=== PATIENT | female | born 1930 | race Caucasian/White ===

== ENCOUNTER 2016-04-21 16:22 | Inpatient (IN) | payer MEDICARE, OTHER ==
[2016-04-21] MEDS ORDERED: ZESTORETIC 20-1 EAC3 PO (17:00)
[2016-04-21] MEDS ORDERED: LOPRESSOR50 M1 PO (17:01)
[2016-04-21 21:03] LABS: BASO % 0.2 % (0-2); BASO ABSOLUTE COUNT 0.1 tho/cmm (0.0-0.2); HCT-HEMATOCRIT 39.4 % (34.0-49.0); HGB-HEMOGLOBIN 13.5 gm/dl (12.0-15.5); IMMATURE GRANULOCYTES ABSOLUTE 0.51 tho/cmm (0-0.03); IMMATURE GRANULOCYTES PERCENT 1.4 % (0-0.3); LYMPH % 2.4 % (20-45); LYMPH ABSOLUTE COUNT 0.9 tho/cmm (0.8-4.5); MCH (MEAN CORPUSCULAR HGB) 29.8 pg (28.0-32.0); MCHC MEAN CORPUSCULAR HGB CONC 34.3 % (32.0-36.0); MEAN PLATELET VOLUME 10.5 cmc (9.4-12.4); MONOCYTE ABSOLUTE COUNT 0.7 tho/cmm (0.0-1.2); NEUTROPHIL ABSOLUTE COUNT 33.5 tho/cmm (1.6-8.0); NEUTROPHIL-AUTOMATED 33.5 tho/cmm (1.6-8.0); PLATELET COUNT 389 tho/cmm (150-450); RED BLOOD COUNT 4.53 mil/cmm (4.00-5.20); RED CELL DISTRIBUTION WIDTH 13.5 % (12.4-16.4)
[2016-04-21 21:09] LABS: INR 1.5 INR (0.9-1.1); PROTHROMBIN TIME 17.7 SECONDS (9.0-13.6)
[2016-04-21 21:23] LABS: WHITE BLOOD COUNT 35.6 tho/cmm (4.0-10.0)
[2016-04-21 21:27] LABS: ALB/GLOB RATIO 0.3 (0.8-2.0); ALBUMIN 1.8 g/dl (3.5-5.0); ALKALINE PHOSPHATASE 110 U/L (33-138); ALT/SGPT 30 U/L (12-78); ANION GAP 19 mmol/L (0-20); AST/SGOT 23 U/L (10-40); BLOOD UREA NITROGEN 73 mg/dl (6-24); CALCIUM 8.2 mg/dl (8.5-10.5); CARBON DIOXIDE-VENOUS 21 mmol/L (22-32); CHLORIDE 106 mmol/l (96-110); CREATININE 2.52 mg/dl (0.50-1.10); GLUCOSE 171 mg/dL (70-110); POTASSIUM 4.5 mmol/L (3.7-5.1); SODIUM 141 mmol/L (135-145); eGFR VALUE FOR BLACK 22 mL/Min
[2016-04-21 21:37] LABS: URINE BILIRUBIN NEGATIVE (NEG); URINE BLOOD LARGE (NEG); URINE GLUCOSE (UA) NEGATIVE (NEG); URINE KETONE NEGATIVE (NEG); URINE LEUKOCYTE ESTERASE POSITIVE (NEG); URINE NITRITE NEGATIVE (NEG)
[2016-04-21 21:39] LABS: URINE APPEARANCE CLOUDY; URINE COLOR DARK YELLOW; URINE SPECIFIC GRAVITY 1.017 (1.003-1.030)
[2016-04-21 21:40] LABS: PROCALCITONIN 1.68 ng/ml (0.05-0.09)
[2016-04-21 21:51] LABS: URINE PROT SULFOSALICYLIC ACID 2+ (NEG)
[2016-04-21 21:52] LABS: URINE BACTERIA 3+; URINE EPITHELIAL CELLS 0-1 /[HPF] (0-10)
[2016-04-22 05:33] LABS: BASO % 0.1 % (0-2); HCT-HEMATOCRIT 34.5 % (34.0-49.0); HGB-HEMOGLOBIN 11.8 gm/dl (12.0-15.5); IMMATURE GRANULOCYTES ABSOLUTE 0.32 tho/cmm (0-0.03); IMMATURE GRANULOCYTES PERCENT 1.1 % (0-0.3); LYMPH % 4.2 % (20-45); LYMPH ABSOLUTE COUNT 1.2 tho/cmm (0.8-4.5); MCH (MEAN CORPUSCULAR HGB) 29.8 pg (28.0-32.0); MCHC MEAN CORPUSCULAR HGB CONC 34.2 % (32.0-36.0); MCV (MEAN CELL VOLUME) 87.1 fl (82.0-96.0); MEAN PLATELET VOLUME 10.3 cmc (9.4-12.4); MONO % 2.3 % (0-12); MONOCYTE ABSOLUTE COUNT 0.7 tho/cmm (0.0-1.2); NEUTROPHIL ABSOLUTE COUNT 26.9 tho/cmm (1.6-8.0); NEUTROPHIL-AUTOMATED 26.9 tho/cmm (1.6-8.0); NEUTROPHILS % 92.3 % (40-80); PLATELET COUNT 341 tho/cmm (150-450); RED BLOOD COUNT 3.96 mil/cmm (4.00-5.20); RED CELL DISTRIBUTION WIDTH 13.7 % (12.4-16.4); WHITE BLOOD COUNT 29.2 tho/cmm (4.0-10.0)
[2016-04-22 06:03] LABS: ANION GAP 16 mmol/L (0-20); BLOOD UREA NITROGEN 80 mg/dl (6-24); CALCIUM 8.1 mg/dl (8.5-10.5); CARBON DIOXIDE-VENOUS 21 mmol/L (22-32); CHLORIDE 107 mmol/l (96-110); CREATININE 2.86 mg/dl (0.50-1.10); GLUCOSE 147 mg/dL (70-110); POTASSIUM 4.4 mmol/L (3.7-5.1); SODIUM 140 mmol/L (135-145); eGFR VALUE FOR BLACK 19 mL/Min
[2016-04-22 06:16] LABS: MAGNESIUM 2.7 mg/dl (1.3-2.6); PHOSPHOROUS 3.4 mg/dl (2.5-4.9)
[2016-04-22 19:02] LABS: URINE CREATININE-RANDOM 48 mg/dl (30-125); URINE UREA NITROGEN-RANDOM 282 mg/dl (350-1000)
[2016-04-23 05:45] LABS: HCT-HEMATOCRIT 33.4 % (34.0-49.0); MCHC MEAN CORPUSCULAR HGB CONC 32.9 % (32.0-36.0); MCV (MEAN CELL VOLUME) 88.1 fl (82.0-96.0); MEAN PLATELET VOLUME 10.1 cmc (9.4-12.4); NEUTROPHIL-AUTOMATED 33.5 tho/cmm (1.6-8.0); PLATELET COUNT 306 tho/cmm (150-450); RED BLOOD COUNT 3.79 mil/cmm (4.00-5.20); RED CELL DISTRIBUTION WIDTH 14.2 % (12.4-16.4)
[2016-04-23 06:14] LABS: ANION GAP 16 mmol/L (0-20); BLOOD UREA NITROGEN 78 mg/dl (6-24); CALCIUM 7.8 mg/dl (8.5-10.5); CARBON DIOXIDE-VENOUS 19 mmol/L (22-32); CHLORIDE 113 mmol/l (96-110); CREATININE 2.72 mg/dl (0.50-1.10); GLUCOSE 85 mg/dL (70-110); MAGNESIUM 2.5 mg/dl (1.3-2.6); PHOSPHOROUS 4.6 mg/dl (2.5-4.9); POTASSIUM 3.9 mmol/L (3.7-5.1); SODIUM 144 mmol/L (135-145); eGFR VALUE FOR BLACK 20 mL/Min
[2016-04-23 06:25] LABS: C-REACTIVE PROTEIN 23.9 mg/dl (0-0.9)
[2016-04-23 08:26] LABS: BAND % 23 % (0-20); BAND ABSOLUTE COUNT 8.2 tho/cmm (0-2.0)
[2016-04-23 08:27] LABS: WBC MORPHOLOGY TOXIC GRANULATION
[2016-04-24 05:21] LABS: ANION GAP 13 mmol/L (0-20); BLOOD UREA NITROGEN 76 mg/dl (6-24); CALCIUM 7.7 mg/dl (8.5-10.5); CARBON DIOXIDE-VENOUS 21 mmol/L (22-32); CHLORIDE 112 mmol/l (96-110); CREATININE 2.62 mg/dl (0.50-1.10); GLUCOSE 84 mg/dL (70-110); MAGNESIUM 2.5 mg/dl (1.3-2.6); POTASSIUM 4.2 mmol/L (3.7-5.1); SODIUM 142 mmol/L (135-145); eGFR VALUE FOR BLACK 21 mL/Min
[2016-04-24 05:28] LABS: BASO % 0.1 % (0-2); BASO ABSOLUTE COUNT 0.1 tho/cmm (0.0-0.2); EOS % 0.7 % (0-7); EOSINOPHIL ABSOLUTE COUNT 0.3 tho/cmm (0.0-0.7); HCT-HEMATOCRIT 32.8 % (34.0-49.0); HGB-HEMOGLOBIN 10.8 gm/dl (12.0-15.5); IMMATURE GRANULOCYTES ABSOLUTE 0.36 tho/cmm (0-0.03); LYMPH ABSOLUTE COUNT 1.4 tho/cmm (0.8-4.5); MCHC MEAN CORPUSCULAR HGB CONC 32.9 % (32.0-36.0); MCV (MEAN CELL VOLUME) 88.2 fl (82.0-96.0); MEAN PLATELET VOLUME 10.5 cmc (9.4-12.4); MONO % 1.6 % (0-12); MONOCYTE ABSOLUTE COUNT 0.6 tho/cmm (0.0-1.2); NEUTROPHIL ABSOLUTE COUNT 33.1 tho/cmm (1.6-8.0); NEUTROPHIL-AUTOMATED 33.1 tho/cmm (1.6-8.0); NEUTROPHILS % 92.6 % (40-80); PLATELET COUNT 273 tho/cmm (150-450); RED BLOOD COUNT 3.72 mil/cmm (4.00-5.20); RED CELL DISTRIBUTION WIDTH 14.3 % (12.4-16.4)
[2016-04-24 05:32] LABS: WHITE BLOOD COUNT 35.8 tho/cmm (4.0-10.0)
[2016-04-24 05:33] LABS: PHOSPHOROUS 2.3 mg/dl (2.5-4.9)
[2016-04-24 08:30] LABS: URINE SODIUM-RANDOM 89 mmol/L (20-110)
[2016-04-24 21:26] LABS: ABG CO2 ARTERIAL 18 mmol/L (21-27); ARTERIAL BLD GAS O2 SATURATION 94 % (95-98); ARTERIAL BLOOD GAS PCO2 32 mmHg (32-45); ARTERIAL PO2 70 mmHg (70-100); BICARBONATE 17 mmol/L (21-28); BLOOD GAS BASE EXCESS -8 mM/L (-/+3); PH 7.34 Units (7.35-7.45)
[2016-04-24 21:33] LABS: BASO % 0.2 % (0-2); BASO ABSOLUTE COUNT 0.1 tho/cmm (0.0-0.2); HCT-HEMATOCRIT 35.4 % (34.0-49.0); HGB-HEMOGLOBIN 11.7 gm/dl (12.0-15.5); IMMATURE GRANULOCYTES ABSOLUTE 0.69 tho/cmm (0-0.03); IMMATURE GRANULOCYTES PERCENT 1.6 % (0-0.3); LYMPH ABSOLUTE COUNT 0.9 tho/cmm (0.8-4.5); MCH (MEAN CORPUSCULAR HGB) 29.2 pg (28.0-32.0); MCHC MEAN CORPUSCULAR HGB CONC 33.1 % (32.0-36.0); MCV (MEAN CELL VOLUME) 88.3 fl (82.0-96.0); MEAN PLATELET VOLUME 10.8 cmc (9.4-12.4); MONO % 1.2 % (0-12); MONOCYTE ABSOLUTE COUNT 0.5 tho/cmm (0.0-1.2); NEUTROPHIL ABSOLUTE COUNT 40.4 tho/cmm (1.6-8.0); NEUTROPHIL-AUTOMATED 40.4 tho/cmm (1.6-8.0); PLATELET COUNT 261 tho/cmm (150-450); RED BLOOD COUNT 4.01 mil/cmm (4.00-5.20); RED CELL DISTRIBUTION WIDTH 14.4 % (12.4-16.4)
[2016-04-24 21:34] LABS: WHITE BLOOD COUNT 42.6 tho/cmm (4.0-10.0)
[2016-04-24 21:36] LABS: INR 1.3 INR (0.9-1.1); PROTHROMBIN TIME 15.8 SECONDS (9.0-13.6)
[2016-04-24 21:46] LABS: ALB/GLOB RATIO 0.2 (0.8-2.0); ALBUMIN 1.2 g/dl (3.5-5.0); ALKALINE PHOSPHATASE 77 U/L (33-138); ALT/SGPT 11 U/L (12-78); ANION GAP 15 mmol/L (0-20); AST/SGOT 18 U/L (10-40); BILIRUBIN,TOTAL 0.7 mg/dl (0-1.5); BLOOD UREA NITROGEN 77 mg/dl (6-24); CALCIUM 7.5 mg/dl (8.5-10.5); CARBON DIOXIDE-VENOUS 21 mmol/L (22-32); CHLORIDE 113 mmol/l (96-110); CREATININE 2.66 mg/dl (0.50-1.10); POTASSIUM 4.4 mmol/L (3.7-5.1); SODIUM 145 mmol/L (135-145); eGFR VALUE FOR BLACK 21 mL/Min
[2016-04-24 21:53] LABS: GLUCOSE 182 mg/dL (70-110)
[2016-04-24 22:00] LABS: WBC MORPHOLOGY TOXIC GRANULATION
[2016-04-24 22:11] LABS: WHITE BLOOD COUNT 35.7 tho/cmm (4.0-10.0)
[2016-04-24 22:27] LABS: PROCALCITONIN 7.31 ng/ml (0.05-0.09)
[2016-04-24 22:27] LABS: URINE APPEARANCE CLOUDY; URINE BILIRUBIN NEGATIVE (NEG); URINE BLOOD LARGE (NEG); URINE COLOR STRAW; URINE GLUCOSE (UA) NEGATIVE (NEG); URINE KETONE SMALL (NEG); URINE LEUKOCYTE ESTERASE POSITIVE (NEG); URINE NITRITE NEGATIVE (NEG); URINE PH 6.5 (5.0-8.0); URINE SPECIFIC GRAVITY 1.017 (1.003-1.030)
[2016-04-24 22:37] LABS: URINE BACTERIA 3+; URINE EPITHELIAL CELLS 0-3 /[HPF] (0-10); URINE PROT SULFOSALICYLIC ACID 2+ (NEG); URINE RBC 40-60 /[HPF] (0-5); URINE WBC FULL FIELD /[HPF] (0-5)
--- NOTE | 2016-04-25 02:54 | NUR ---
RN NOTIFIED LINDA PHARMACIST AT 0255 OF VANCOMYCIN TIME AT 0400 INSTEAD OF 0230 AND NOTIFIED VANCOMYCIN TROUGH 9.3. LABS READ BACK.
[2016-04-25 05:40] LABS: BASO % 0.2 % (0-2); BASO ABSOLUTE COUNT 0.1 tho/cmm (0.0-0.2); HCT-HEMATOCRIT 32.3 % (34.0-49.0); HGB-HEMOGLOBIN 10.5 gm/dl (12.0-15.5); IMMATURE GRANULOCYTES ABSOLUTE 0.41 tho/cmm (0-0.03); IMMATURE GRANULOCYTES PERCENT 1.2 % (0-0.3); LYMPH % 3.7 % (20-45); LYMPH ABSOLUTE COUNT 1.3 tho/cmm (0.8-4.5); MCH (MEAN CORPUSCULAR HGB) 28.6 pg (28.0-32.0); MCHC MEAN CORPUSCULAR HGB CONC 32.5 % (32.0-36.0); MEAN PLATELET VOLUME 10.8 cmc (9.4-12.4); MONO % 2.1 % (0-12); MONOCYTE ABSOLUTE COUNT 0.7 tho/cmm (0.0-1.2); NEUTROPHILS % 92.8 % (40-80); PLATELET COUNT 240 tho/cmm (150-450); RED BLOOD COUNT 3.67 mil/cmm (4.00-5.20); RED CELL DISTRIBUTION WIDTH 14.5 % (12.4-16.4)
[2016-04-25 05:44] LABS: WHITE BLOOD COUNT 35.5 tho/cmm (4.0-10.0)
[2016-04-25 06:08] LABS: BLOOD UREA NITROGEN 70 mg/dl (6-24)
[2016-04-25 07:47] LABS: ANION GAP 14 mmol/L (0-20); CALCIUM 7.5 mg/dl (8.5-10.5); CARBON DIOXIDE-VENOUS 21 mmol/L (22-32); CHLORIDE 114 mmol/l (96-110); CREATININE 2.39 mg/dl (0.50-1.10); GLUCOSE 170 mg/dL (70-110); MAGNESIUM 2.5 mg/dl (1.3-2.6); PHOSPHOROUS 5.4 mg/dl (2.5-4.9); POTASSIUM 3.7 mmol/L (3.7-5.1); SODIUM 145 mmol/L (135-145); eGFR VALUE FOR BLACK 23 mL/Min
[2016-04-25 15:24] LABS: ABG CO2 ARTERIAL 22 mmol/L (21-27); ARTERIAL BLD GAS O2 SATURATION 94 % (95-98); ARTERIAL BLOOD GAS PCO2 34 mmHg (32-45); ARTERIAL PO2 68 mmHg (70-100); BICARBONATE 21 mmol/L (21-28); BLOOD GAS BASE EXCESS -3 mM/L (-/+3)
[2016-04-26 04:24] LABS: BASO % 0.3 % (0-2); BASO ABSOLUTE COUNT 0.1 tho/cmm (0.0-0.2); EOS % 0.3 % (0-7); EOSINOPHIL ABSOLUTE COUNT 0.1 tho/cmm (0.0-0.7); HCT-HEMATOCRIT 34.4 % (34.0-49.0); HGB-HEMOGLOBIN 11.3 gm/dl (12.0-15.5); IMMATURE GRANULOCYTES ABSOLUTE 0.83 tho/cmm (0-0.03); LYMPH % 3.3 % (20-45); LYMPH ABSOLUTE COUNT 1.4 tho/cmm (0.8-4.5); MCH (MEAN CORPUSCULAR HGB) 28.5 pg (28.0-32.0); MCHC MEAN CORPUSCULAR HGB CONC 32.8 % (32.0-36.0); MCV (MEAN CELL VOLUME) 86.6 fl (82.0-96.0); MEAN PLATELET VOLUME 10.5 cmc (9.4-12.4); MONO % 1.9 % (0-12); MONOCYTE ABSOLUTE COUNT 0.8 tho/cmm (0.0-1.2); NEUTROPHIL ABSOLUTE COUNT 37.9 tho/cmm (1.6-8.0); NEUTROPHIL-AUTOMATED 37.9 tho/cmm (1.6-8.0); NEUTROPHILS % 92.2 % (40-80); PLATELET COUNT 241 tho/cmm (150-450); RED BLOOD COUNT 3.97 mil/cmm (4.00-5.20); RED CELL DISTRIBUTION WIDTH 14.4 % (12.4-16.4)
[2016-04-26 04:44] LABS: ALBUMIN 1.7 g/dl (3.5-5.0); ANION GAP 13 mmol/L (0-20); BLOOD UREA NITROGEN 63 mg/dl (6-24); CALCIUM 8.1 mg/dl (8.5-10.5); CARBON DIOXIDE-VENOUS 24 mmol/L (22-32); CHLORIDE 115 mmol/l (96-110); CREATININE 1.95 mg/dl (0.50-1.10); GLUCOSE 147 mg/dL (70-110); MAGNESIUM 2.5 mg/dl (1.3-2.6); PHOSPHOROUS 3.8 mg/dl (2.5-4.9); POTASSIUM 3.5 mmol/L (3.7-5.1); PREALBUMIN 5.8 mg/dl (20.0-40.0); SODIUM 148 mmol/L (135-145); eGFR VALUE FOR BLACK 29 mL/Min
[2016-04-26 04:45] LABS: WHITE BLOOD COUNT 41.1 tho/cmm (4.0-10.0)
[2016-04-26 04:58] LABS: C-REACTIVE PROTEIN 23.2 mg/dl (0-0.9)
[2016-04-26 08:45] LABS: WBC MORPHOLOGY TOXIC GRANULATION
[2016-04-27 00:50] LABS: ABG CO2 ARTERIAL 19 mmol/L (21-27); ARTERIAL BLD GAS O2 SATURATION 99 % (95-98); ARTERIAL BLOOD GAS PCO2 32 mmHg (32-45); ARTERIAL PO2 160 mmHg (70-100); BICARBONATE 19 mmol/L (21-28); BLOOD GAS BASE EXCESS -5 mM/L (-/+3); PH 7.39 Units (7.35-7.45)
[2016-04-27 02:32] LABS: HCT-HEMATOCRIT 33.7 % (34.0-49.0); HGB-HEMOGLOBIN 10.9 gm/dl (12.0-15.5); MCH (MEAN CORPUSCULAR HGB) 28.5 pg (28.0-32.0); MCHC MEAN CORPUSCULAR HGB CONC 32.3 % (32.0-36.0); MEAN PLATELET VOLUME 11.3 cmc (9.4-12.4); PLATELET COUNT 185 tho/cmm (150-450); RED BLOOD COUNT 3.83 mil/cmm (4.00-5.20); RED CELL DISTRIBUTION WIDTH 14.6 % (12.4-16.4)
[2016-04-27 02:37] LABS: MAGNESIUM 2.1 mg/dl (1.3-2.6); POTASSIUM 4.1 mmol/L (3.7-5.1)
[2016-04-27 03:27] LABS: BAND % 19 % (0-20); BAND ABSOLUTE COUNT 10.3 tho/cmm (0-2.0)
[2016-04-27 03:30] LABS: ALB/GLOB RATIO 0.7 (0.8-2.0); ALBUMIN 2.1 g/dl (3.5-5.0); ALKALINE PHOSPHATASE 61 U/L (33-138); ANION GAP 15 mmol/L (0-20); AST/SGOT 10 U/L (10-40); BILIRUBIN,DIRECT 1.2 mg/dl (0.0-0.3); BILIRUBIN,INDIRECT 0.7 mg/dL (0.0-1.0); BILIRUBIN,TOTAL 1.9 mg/dl (0-1.5); BLOOD UREA NITROGEN 53 mg/dl (6-24); CALCIUM 7.5 mg/dl (8.5-10.5); CARBON DIOXIDE-VENOUS 20 mmol/L (22-32); CHLORIDE 120 mmol/l (96-110); GLUCOSE 197 mg/dL (70-110); MAGNESIUM 2.1 mg/dl (1.3-2.6); NEUTROPHIL-AUTOMATED 50.9 tho/cmm (1.6-8.0); PHOSPHOROUS 3.3 mg/dl (2.5-4.9); POTASSIUM 4.1 mmol/L (3.7-5.1); SODIUM 151 mmol/L (135-145)
[2016-04-27 03:31] LABS: WBC MORPHOLOGY TOXIC GRANULATION
[2016-04-27 05:06] LABS: ALT/SGPT <10 U/L (12-78); CREATININE 1.46 mg/dl (0.50-1.10); eGFR VALUE FOR BLACK 41 mL/Min
[2016-04-27 14:46] LABS: URINE POTASSIUM RANDOM 22 mmol/L (12-62)
[2016-04-28 04:21] LABS: BASO % 0.2 % (0-2); BASO ABSOLUTE COUNT 0.1 tho/cmm (0.0-0.2); EOS % 0.8 % (0-7); EOSINOPHIL ABSOLUTE COUNT 0.2 tho/cmm (0.0-0.7); HCT-HEMATOCRIT 27.5 % (34.0-49.0); HGB-HEMOGLOBIN 8.8 gm/dl (12.0-15.5); IMMATURE GRANULOCYTES ABSOLUTE 0.94 tho/cmm (0-0.03); IMMATURE GRANULOCYTES PERCENT 3.5 % (0-0.3); LYMPH % 6.7 % (20-45); LYMPH ABSOLUTE COUNT 1.8 tho/cmm (0.8-4.5); MCH (MEAN CORPUSCULAR HGB) 27.9 pg (28.0-32.0); MCV (MEAN CELL VOLUME) 87.3 fl (82.0-96.0); MONO % 1.5 % (0-12); MONOCYTE ABSOLUTE COUNT 0.4 tho/cmm (0.0-1.2); NEUTROPHIL ABSOLUTE COUNT 23.5 tho/cmm (1.6-8.0); NEUTROPHIL-AUTOMATED 23.5 tho/cmm (1.6-8.0); NEUTROPHILS % 87.3 % (40-80); PLATELET COUNT 173 tho/cmm (150-450); RED BLOOD COUNT 3.15 mil/cmm (4.00-5.20); RED CELL DISTRIBUTION WIDTH 14.6 % (12.4-16.4)
[2016-04-28 04:43] LABS: WHITE BLOOD COUNT 26.9 tho/cmm (4.0-10.0)
[2016-04-28 05:25] LABS: ALB/GLOB RATIO 0.5 (0.8-2.0); ALBUMIN 1.6 g/dl (3.5-5.0); ALKALINE PHOSPHATASE 54 U/L (33-138); BILIRUBIN,TOTAL 2.5 mg/dl (0-1.5); BLOOD UREA NITROGEN 43 mg/dl (6-24); CALCIUM 7.3 mg/dl (8.5-10.5); CARBON DIOXIDE-VENOUS 23 mmol/L (22-32); CHLORIDE 116 mmol/l (96-110); CREATININE 1.31 mg/dl (0.50-1.10); GLUCOSE 172 mg/dL (70-110); PHOSPHOROUS 1.8 mg/dl (2.5-4.9); SODIUM 148 mmol/L (135-145); eGFR VALUE FOR BLACK 47 mL/Min
[2016-04-28 05:35] LABS: ALT/SGPT <10 U/L (12-78); ANION GAP 13 mmol/L (0-20); AST/SGOT 16 U/L (10-40); POTASSIUM 3.9 mmol/L (3.7-5.1)
[2016-04-28 06:13] LABS: ABG CO2 ARTERIAL 23 mmol/L (21-27); ARTERIAL BLD GAS O2 SATURATION 92 % (95-98); ARTERIAL BLOOD GAS PCO2 35 mmHg (32-45); BICARBONATE 22 mmol/L (21-28); BLOOD GAS BASE EXCESS -2 mM/L (-/+3); PH 7.41 Units (7.35-7.45)
[2016-04-28 06:14] LABS: ARTERIAL PO2 60 mmHg (70-100)
[2016-04-28 06:33] LABS: WBC MORPHOLOGY TOXIC GRANULATION
[2016-04-28 12:32] LABS: URINE SODIUM-RANDOM 37 mmol/L (20-110)
[2016-04-29 05:53] LABS: ABG CO2 ARTERIAL 22 mmol/L (21-27); ARTERIAL BLD GAS O2 SATURATION 96 % (95-98); ARTERIAL BLOOD GAS PCO2 29 mmHg (32-45); BICARBONATE 21 mmol/L (21-28); BLOOD GAS BASE EXCESS -2 mM/L (-/+3); PH 7.47 Units (7.35-7.45)
[2016-04-29 05:54] LABS: ARTERIAL PO2 71 mmHg (70-100)
[2016-04-29 06:04] LABS: HCT-HEMATOCRIT 31.7 % (34.0-49.0); HGB-HEMOGLOBIN 10.1 gm/dl (12.0-15.5); MCHC MEAN CORPUSCULAR HGB CONC 31.9 % (32.0-36.0); MEAN PLATELET VOLUME 11.9 cmc (9.4-12.4); NEUTROPHIL-AUTOMATED 18.6 tho/cmm (1.6-8.0); PLATELET COUNT 193 tho/cmm (150-450); RED BLOOD COUNT 3.08 mil/cmm (4.00-5.20); WHITE BLOOD COUNT 22.9 tho/cmm (4.0-10.0)
[2016-04-29 06:17] LABS: MCH (MEAN CORPUSCULAR HGB) 32.8 pg (28.0-32.0); MCV (MEAN CELL VOLUME) 102.9 fl (82.0-96.0)
[2016-04-29 07:37] LABS: ALB/GLOB RATIO 0.5 (0.8-2.0); ALBUMIN 1.7 g/dl (3.5-5.0); ALKALINE PHOSPHATASE 63 U/L (33-138); ANION GAP 12 mmol/L (0-20); AST/SGOT 15 U/L (10-40); BILIRUBIN,TOTAL 2.3 mg/dl (0-1.5); BLOOD UREA NITROGEN 33 mg/dl (6-24); C-REACTIVE PROTEIN 7.5 mg/dl (0-0.9); CALCIUM 7.4 mg/dl (8.5-10.5); CARBON DIOXIDE-VENOUS 22 mmol/L (22-32); CHLORIDE 112 mmol/l (96-110); CREATININE 0.98 mg/dl (0.50-1.10); GLUCOSE 167 mg/dL (70-110); MAGNESIUM 1.8 mg/dl (1.3-2.6); PHOSPHOROUS 1.8 mg/dl (2.5-4.9); PREALBUMIN 10.9 mg/dl (20.0-40.0); SODIUM 142 mmol/L (135-145); eGFR VALUE FOR BLACK >60 mL/Min
[2016-04-29 07:44] LABS: HCT-HEMATOCRIT 31.1 % (34.0-49.0); HGB-HEMOGLOBIN 10.2 gm/dl (12.0-15.5); MCHC MEAN CORPUSCULAR HGB CONC 32.8 % (32.0-36.0); MCV (MEAN CELL VOLUME) 85.4 fl (82.0-96.0); MEAN PLATELET VOLUME 11.5 cmc (9.4-12.4); NEUTROPHIL-AUTOMATED 21.3 tho/cmm (1.6-8.0); PLATELET COUNT 188 tho/cmm (150-450); RED BLOOD COUNT 3.64 mil/cmm (4.00-5.20); RED CELL DISTRIBUTION WIDTH 15.1 % (12.4-16.4); WHITE BLOOD COUNT 25.9 tho/cmm (4.0-10.0)
[2016-04-29 07:45] LABS: BAND % 12 % (0-20); BAND ABSOLUTE COUNT 2.7 tho/cmm (0-2.0); EOSINOPHIL % 2 % (0-7); WBC MORPHOLOGY TOXIC GRANULATION
[2016-04-29 07:45] LABS: BASO % 0.3 % (0-2); BASO ABSOLUTE COUNT 0.1 tho/cmm (0.0-0.2); EOS % 2.4 % (0-7); EOSINOPHIL ABSOLUTE COUNT 0.6 tho/cmm (0.0-0.7); IMMATURE GRANULOCYTES ABSOLUTE 1.84 tho/cmm (0-0.03); IMMATURE GRANULOCYTES PERCENT 7.1 % (0-0.3); LYMPH % 6.2 % (20-45); LYMPH ABSOLUTE COUNT 1.6 tho/cmm (0.8-4.5); MONOCYTE ABSOLUTE COUNT 0.5 tho/cmm (0.0-1.2); NEUTROPHIL ABSOLUTE COUNT 21.3 tho/cmm (1.6-8.0)
[2016-04-29 07:50] LABS: ALT/SGPT <10 U/L (12-78); POTASSIUM 3.7 mmol/L (3.7-5.1)
[2016-04-29 08:33] LABS: WBC MORPHOLOGY TOXIC GRANULATION
[2016-04-30 06:08] LABS: HCT-HEMATOCRIT 33.9 % (34.0-49.0); HGB-HEMOGLOBIN 11.2 gm/dl (12.0-15.5); MCH (MEAN CORPUSCULAR HGB) 28.6 pg (28.0-32.0); MCV (MEAN CELL VOLUME) 86.5 fl (82.0-96.0); MEAN PLATELET VOLUME 11.2 cmc (9.4-12.4); PLATELET COUNT 241 tho/cmm (150-450); RED BLOOD COUNT 3.92 mil/cmm (4.00-5.20); RED CELL DISTRIBUTION WIDTH 15.1 % (12.4-16.4); WHITE BLOOD COUNT 31.1 tho/cmm (4.0-10.0)
[2016-04-30 06:44] LABS: ALBUMIN 1.6 g/dl (3.5-5.0); BLOOD UREA NITROGEN 28 mg/dl (6-24); CARBON DIOXIDE-VENOUS 23 mmol/L (22-32); CREATININE 0.81 mg/dl (0.50-1.10); GLUCOSE 128 mg/dL (70-110); PHOSPHOROUS 2.1 mg/dl (2.5-4.9); eGFR VALUE FOR BLACK >60 mL/Min
[2016-04-30 08:18] LABS: ANION GAP 15 mmol/L (0-20); CHLORIDE 116 mmol/l (96-110); POTASSIUM 3.7 mmol/L (3.7-5.1)
[2016-04-30 08:19] LABS: SODIUM 150 mmol/L (135-145)
[2016-04-30 10:00] LABS: BAND % 13 % (0-20)
[2016-04-30 10:34] LABS: EOSINOPHIL % 4 % (0-7); WBC MORPHOLOGY TOXIC GRANULATION
[2016-05-01 15:19] LABS: ALB/GLOB RATIO 0.4 (0.8-2.0); ALBUMIN 1.6 g/dl (3.5-5.0); ALKALINE PHOSPHATASE 120 U/L (33-138); ALT/SGPT 14 U/L (12-78); ANION GAP 11 mmol/L (0-20); AST/SGOT 30 U/L (10-40); BILIRUBIN,TOTAL 2.4 mg/dl (0-1.5); BLOOD UREA NITROGEN 28 mg/dl (6-24); C-REACTIVE PROTEIN 8.1 mg/dl (0-0.9); CALCIUM 7.6 mg/dl (8.5-10.5); CARBON DIOXIDE-VENOUS 27 mmol/L (22-32); CHLORIDE 111 mmol/l (96-110); CREATININE 0.74 mg/dl (0.50-1.10); GLUCOSE 111 mg/dL (70-110); POTASSIUM 3.6 mmol/L (3.7-5.1); SODIUM 145 mmol/L (135-145); eGFR VALUE FOR BLACK >60 mL/Min
[2016-05-02 06:12] LABS: HCT-HEMATOCRIT 30.3 % (34.0-49.0); HGB-HEMOGLOBIN 9.6 gm/dl (12.0-15.5); MCHC MEAN CORPUSCULAR HGB CONC 31.7 % (32.0-36.0); MEAN PLATELET VOLUME 10.7 cmc (9.4-12.4); NEUTROPHIL-AUTOMATED 21.9 tho/cmm (1.6-8.0); PLATELET COUNT 329 tho/cmm (150-450); RED BLOOD COUNT 3.39 mil/cmm (4.00-5.20); RED CELL DISTRIBUTION WIDTH 15.4 % (12.4-16.4); WHITE BLOOD COUNT 29.7 tho/cmm (4.0-10.0)
[2016-05-02 06:34] LABS: MCV (MEAN CELL VOLUME) 89.4 fl (82.0-96.0)
[2016-05-02 06:35] LABS: BASO ABSOLUTE COUNT 0.3 tho/cmm (0.0-0.2); EOS % 3.1 % (0-7); EOSINOPHIL ABSOLUTE COUNT 0.9 tho/cmm (0.0-0.7); IMMATURE GRANULOCYTES ABSOLUTE 3.25 tho/cmm (0-0.03); IMMATURE GRANULOCYTES PERCENT 10.9 % (0-0.3); LYMPH % 6.2 % (20-45); LYMPH ABSOLUTE COUNT 1.8 tho/cmm (0.8-4.5); MCH (MEAN CORPUSCULAR HGB) 28.3 pg (28.0-32.0); MONO % 4.9 % (0-12); MONOCYTE ABSOLUTE COUNT 1.5 tho/cmm (0.0-1.2); NEUTROPHIL ABSOLUTE COUNT 21.9 tho/cmm (1.6-8.0); NEUTROPHILS % 73.9 % (40-80)
[2016-05-02 06:48] LABS: ALB/GLOB RATIO 0.4 (0.8-2.0); ALBUMIN 1.5 g/dl (3.5-5.0); ALT/SGPT 14 U/L (12-78); ANION GAP 10 mmol/L (0-20); AST/SGOT 32 U/L (10-40); BILIRUBIN,TOTAL 1.5 mg/dl (0-1.5); CALCIUM 7.5 mg/dl (8.5-10.5); CARBON DIOXIDE-VENOUS 28 mmol/L (22-32); CHLORIDE 110 mmol/l (96-110); CREATININE 0.75 mg/dl (0.50-1.10); GLUCOSE 112 mg/dL (70-110); MAGNESIUM 1.8 mg/dl (1.3-2.6); PHOSPHOROUS 2.7 mg/dl (2.5-4.9); POTASSIUM 3.4 mmol/L (3.7-5.1); SODIUM 145 mmol/L (135-145); eGFR VALUE FOR BLACK >60 mL/Min
[2016-05-02 06:51] LABS: ALKALINE PHOSPHATASE 121 U/L (33-138); BLOOD UREA NITROGEN 31 mg/dl (6-24)
[2016-05-03 05:09] LABS: HCT-HEMATOCRIT 29.7 % (34.0-49.0); HGB-HEMOGLOBIN 9.3 gm/dl (12.0-15.5); MCH (MEAN CORPUSCULAR HGB) 28.2 pg (28.0-32.0); MCHC MEAN CORPUSCULAR HGB CONC 31.3 % (32.0-36.0); MEAN PLATELET VOLUME 10.4 cmc (9.4-12.4); NEUTROPHIL-AUTOMATED 19.4 tho/cmm (1.6-8.0); PLATELET COUNT 373 tho/cmm (150-450); RED CELL DISTRIBUTION WIDTH 15.8 % (12.4-16.4); WHITE BLOOD COUNT 25.9 tho/cmm (4.0-10.0)
[2016-05-03 05:16] LABS: ALB/GLOB RATIO 0.4 (0.8-2.0); ALBUMIN 1.6 g/dl (3.5-5.0); ALKALINE PHOSPHATASE 132 U/L (33-138); ALT/SGPT 15 U/L (12-78); ANION GAP 9 mmol/L (0-20); AST/SGOT 29 U/L (10-40); BILIRUBIN,TOTAL 1.1 mg/dl (0-1.5); BLOOD UREA NITROGEN 31 mg/dl (6-24); C-REACTIVE PROTEIN 5.7 mg/dl (0-0.9); CALCIUM 7.5 mg/dl (8.5-10.5); CARBON DIOXIDE-VENOUS 30 mmol/L (22-32); CHLORIDE 108 mmol/l (96-110); GLUCOSE 109 mg/dL (70-110); POTASSIUM 3.3 mmol/L (3.7-5.1); SODIUM 144 mmol/L (135-145); eGFR VALUE FOR BLACK >60 mL/Min
[2016-05-03 07:11] LABS: BAND % 8 % (0-20); BAND ABSOLUTE COUNT 2.1 tho/cmm (0-2.0); EOSINOPHIL % 5 % (0-7)
[2016-05-04 04:40] LABS: HCT-HEMATOCRIT 30.9 % (34.0-49.0); HGB-HEMOGLOBIN 9.7 gm/dl (12.0-15.5); MCH (MEAN CORPUSCULAR HGB) 28.2 pg (28.0-32.0); MCHC MEAN CORPUSCULAR HGB CONC 31.4 % (32.0-36.0); MCV (MEAN CELL VOLUME) 89.8 fl (82.0-96.0); MEAN PLATELET VOLUME 10.2 cmc (9.4-12.4); NEUTROPHIL-AUTOMATED 16.2 tho/cmm (1.6-8.0); PLATELET COUNT 367 tho/cmm (150-450); RED BLOOD COUNT 3.44 mil/cmm (4.00-5.20); RED CELL DISTRIBUTION WIDTH 15.9 % (12.4-16.4); WHITE BLOOD COUNT 21.3 tho/cmm (4.0-10.0)
[2016-05-04 05:18] LABS: BASO % 0.7 % (0-2); BASO ABSOLUTE COUNT 0.2 tho/cmm (0.0-0.2); EOS % 3.4 % (0-7); EOSINOPHIL ABSOLUTE COUNT 0.7 tho/cmm (0.0-0.7); IMMATURE GRANULOCYTES ABSOLUTE 1.46 tho/cmm (0-0.03); IMMATURE GRANULOCYTES PERCENT 6.9 % (0-0.3); LYMPH % 6.7 % (20-45); LYMPH ABSOLUTE COUNT 1.4 tho/cmm (0.8-4.5); MONO % 6.3 % (0-12); MONOCYTE ABSOLUTE COUNT 1.3 tho/cmm (0.0-1.2); NEUTROPHIL ABSOLUTE COUNT 16.2 tho/cmm (1.6-8.0)
[2016-05-04 05:19] LABS: ALB/GLOB RATIO 0.4 (0.8-2.0); ALBUMIN 1.7 g/dl (3.5-5.0); ALKALINE PHOSPHATASE 141 U/L (33-138); ALT/SGPT 18 U/L (12-78); ANION GAP 11 mmol/L (0-20); AST/SGOT 29 U/L (10-40); BILIRUBIN,TOTAL 1.2 mg/dl (0-1.5); BLOOD UREA NITROGEN 24 mg/dl (6-24); CALCIUM 7.6 mg/dl (8.5-10.5); CARBON DIOXIDE-VENOUS 29 mmol/L (22-32); CHLORIDE 109 mmol/l (96-110); CREATININE 0.64 mg/dl (0.50-1.10); GLUCOSE 85 mg/dL (70-110); POTASSIUM 3.5 mmol/L (3.7-5.1); SODIUM 145 mmol/L (135-145); eGFR VALUE FOR BLACK >60 mL/Min
[2016-05-04 07:06] LABS: WBC MORPHOLOGY TOXIC GRANULATION
[2016-05-05 05:13] LABS: HCT-HEMATOCRIT 28.5 % (34.0-49.0); MCH (MEAN CORPUSCULAR HGB) 28.6 pg (28.0-32.0); MCHC MEAN CORPUSCULAR HGB CONC 31.6 % (32.0-36.0); MCV (MEAN CELL VOLUME) 90.5 fl (82.0-96.0); MEAN PLATELET VOLUME 10.2 cmc (9.4-12.4); NEUTROPHIL-AUTOMATED 13.4 tho/cmm (1.6-8.0); PLATELET COUNT 369 tho/cmm (150-450); RED BLOOD COUNT 3.15 mil/cmm (4.00-5.20); RED CELL DISTRIBUTION WIDTH 16.1 % (12.4-16.4); WHITE BLOOD COUNT 18.1 tho/cmm (4.0-10.0)
[2016-05-05 05:33] LABS: ALB/GLOB RATIO 0.4 (0.8-2.0); ALBUMIN 1.5 g/dl (3.5-5.0); ALKALINE PHOSPHATASE 127 U/L (33-138); ALT/SGPT 16 U/L (12-78); ANION GAP 10 mmol/L (0-20); AST/SGOT 30 U/L (10-40); BLOOD UREA NITROGEN 24 mg/dl (6-24); C-REACTIVE PROTEIN 8.9 mg/dl (0-0.9); CALCIUM 7.2 mg/dl (8.5-10.5); CARBON DIOXIDE-VENOUS 28 mmol/L (22-32); CHLORIDE 110 mmol/l (96-110); CREATININE 0.62 mg/dl (0.50-1.10); GLUCOSE 88 mg/dL (70-110); POTASSIUM 3.2 mmol/L (3.7-5.1); SODIUM 145 mmol/L (135-145); eGFR VALUE FOR BLACK >60 mL/Min
[2016-05-05 08:17] LABS: BAND % 11 % (0-20); EOSINOPHIL % 2 % (0-7)
[2016-05-06 06:20] LABS: BASO % 0.5 % (0-2); BASO ABSOLUTE COUNT 0.1 tho/cmm (0.0-0.2); EOSINOPHIL ABSOLUTE COUNT 0.7 tho/cmm (0.0-0.7); HCT-HEMATOCRIT 32.9 % (34.0-49.0); HGB-HEMOGLOBIN 10.2 gm/dl (12.0-15.5); IMMATURE GRANULOCYTES ABSOLUTE 0.47 tho/cmm (0-0.03); LYMPH % 4.3 % (20-45); MCH (MEAN CORPUSCULAR HGB) 28.2 pg (28.0-32.0); MCV (MEAN CELL VOLUME) 90.9 fl (82.0-96.0); MONO % 7.5 % (0-12); MONOCYTE ABSOLUTE COUNT 1.8 tho/cmm (0.0-1.2); NEUTROPHIL ABSOLUTE COUNT 19.3 tho/cmm (1.6-8.0); NEUTROPHIL-AUTOMATED 19.3 tho/cmm (1.6-8.0); NEUTROPHILS % 82.7 % (40-80); PLATELET COUNT 395 tho/cmm (150-450); RED BLOOD COUNT 3.62 mil/cmm (4.00-5.20); RED CELL DISTRIBUTION WIDTH 16.1 % (12.4-16.4); WHITE BLOOD COUNT 23.4 tho/cmm (4.0-10.0)
[2016-05-06 06:34] LABS: ALB/GLOB RATIO 0.4 (0.8-2.0); ALBUMIN 1.7 g/dl (3.5-5.0); ALKALINE PHOSPHATASE 135 U/L (33-138); ALT/SGPT 16 U/L (12-78); ANION GAP 12 mmol/L (0-20); AST/SGOT 29 U/L (10-40); BILIRUBIN,TOTAL 0.9 mg/dl (0-1.5); BLOOD UREA NITROGEN 23 mg/dl (6-24); CALCIUM 7.4 mg/dl (8.5-10.5); CARBON DIOXIDE-VENOUS 27 mmol/L (22-32); CHLORIDE 108 mmol/l (96-110); CREATININE 0.82 mg/dl (0.50-1.10); GLUCOSE 90 mg/dL (70-110); POTASSIUM 3.7 mmol/L (3.7-5.1); SODIUM 143 mmol/L (135-145); eGFR VALUE FOR BLACK >60 mL/Min
[2016-05-06 14:29] LABS: URINE BILIRUBIN NEGATIVE (NEG); URINE BLOOD LARGE (NEG); URINE GLUCOSE (UA) NEGATIVE (NEG); URINE KETONE NEGATIVE (NEG); URINE LEUKOCYTE ESTERASE POSITIVE (NEG); URINE NITRITE NEGATIVE (NEG); URINE PH 6.5 (5.0-8.0); URINE PROTEIN POSITIVE (NEG)
[2016-05-06 14:31] LABS: URINE APPEARANCE CLOUDY; URINE COLOR YELLOW; URINE SPECIFIC GRAVITY 1.011 (1.003-1.030)
[2016-05-06 14:50] LABS: URINE BACTERIA 1+; URINE RBC 20-30 /[HPF] (0-5); URINE WBC 150-200 /[HPF] (0-5)
[2016-05-07 06:24] LABS: BASO % 0.9 % (0-2); BASO ABSOLUTE COUNT 0.1 tho/cmm (0.0-0.2); EOSINOPHIL ABSOLUTE COUNT 0.8 tho/cmm (0.0-0.7); HCT-HEMATOCRIT 28.2 % (34.0-49.0); HGB-HEMOGLOBIN 8.7 gm/dl (12.0-15.5); IMMATURE GRANULOCYTES ABSOLUTE 0.27 tho/cmm (0-0.03); IMMATURE GRANULOCYTES PERCENT 1.7 % (0-0.3); LYMPH ABSOLUTE COUNT 1.4 tho/cmm (0.8-4.5); MCHC MEAN CORPUSCULAR HGB CONC 30.9 % (32.0-36.0); MCV (MEAN CELL VOLUME) 90.7 fl (82.0-96.0); MEAN PLATELET VOLUME 9.8 cmc (9.4-12.4); MONO % 7.8 % (0-12); MONOCYTE ABSOLUTE COUNT 1.2 tho/cmm (0.0-1.2); NEUTROPHIL ABSOLUTE COUNT 11.9 tho/cmm (1.6-8.0); NEUTROPHIL-AUTOMATED 11.9 tho/cmm (1.6-8.0); NEUTROPHILS % 75.6 % (40-80); PLATELET COUNT 324 tho/cmm (150-450); RED BLOOD COUNT 3.11 mil/cmm (4.00-5.20); RED CELL DISTRIBUTION WIDTH 16.4 % (12.4-16.4); WHITE BLOOD COUNT 15.7 tho/cmm (4.0-10.0)
[2016-05-07 06:40] LABS: ALB/GLOB RATIO 0.4 (0.8-2.0); ALBUMIN 1.5 g/dl (3.5-5.0); ALKALINE PHOSPHATASE 114 U/L (33-138); ALT/SGPT 13 U/L (12-78); ANION GAP 8 mmol/L (0-20); AST/SGOT 19 U/L (10-40); BILIRUBIN,TOTAL 0.8 mg/dl (0-1.5); BLOOD UREA NITROGEN 22 mg/dl (6-24); C-REACTIVE PROTEIN 14.4 mg/dl (0-0.9); CALCIUM 7.4 mg/dl (8.5-10.5); CARBON DIOXIDE-VENOUS 29 mmol/L (22-32); CHLORIDE 109 mmol/l (96-110); CREATININE 0.77 mg/dl (0.50-1.10); GLUCOSE 88 mg/dL (70-110); PHOSPHOROUS 2.8 mg/dl (2.5-4.9); POTASSIUM 3.5 mmol/L (3.7-5.1); SODIUM 142 mmol/L (135-145); eGFR VALUE FOR BLACK >60 mL/Min
[2016-05-20] MEDS ORDERED: AUGMENTIN 875-1 EAC2 PO (10:21)
[2016-05-20] MEDS ORDERED: COLACE100 M1 PO (10:21)
[2016-05-20] MEDS ORDERED: IPRAT-ALBUT 0.5-3 ML INH (10:22)
[2016-05-20] MEDS ORDERED: MUCINEX1200 MG PO (10:22)
[2016-05-20] MEDS ORDERED: LEVAQUIN750 M1 PO (10:22)
[2016-05-20] MEDS ORDERED: NYSTOP60 GM TD (10:23)
[2016-05-20] MEDS ORDERED: CHEWABLE-VITE1 EAC1 PO (10:23)
[2016-05-20] MEDS ORDERED: POTASSIUM CHLO20 ME4 PO (10:24)
[2016-05-20] MEDS ORDERED: SENNA8.6 M2 PO (10:24)
[2016-05-29] MEDS ORDERED: LASIX20 M1 PO (14:40)
[2016-05-29] MEDS ORDERED: MIRALAX17 G2 PO (14:40)
[2016-05-29] MEDS ORDERED: HYDROCHLOROTH12.5 M2 PO (14:40)
[2016-05-29] MEDS ORDERED: PRINIVIL10 M1 PO (14:41)
[2016-06-16] MEDS ORDERED: LISINOPRIL-HCT1 EAC3 PO (11:10)
[2016-06-16] MEDS ORDERED: TYLENOL325 M2 PO (15:27)
[2016-06-16] MEDS ORDERED: IPRAT-ALBUT 0.5-3 ML (15:40)
[2016-07-03] MEDS ORDERED: NORCO 5-325 TA1 EACH PO (14:38)
[2016-07-03] MEDS ORDERED: SYMBICORT 160-1 PUFF INH (14:38)
== END 2016-05-07 14:41 | DRG 853 ==
LOC: BURN 16:22 → ORW 04-26 19:30 → BURN 04-26 21:47
PROVIDERS: Family Medicine; Hospitalist; Internal Medicine; Internal Medicine Critical Care Medicine; Internal Medicine Infectious Disease; Internal Medicine Nephrology; Nurse Practitioner Family; Registered Nurse; Surgery; ADMIT Internal Medicine
PROC: 05HN33Z Insertion of Infusion Device into Left Internal Jugular Vein, Percutaneous Approach (ICD-10-PCS; principal; 2016-04-22)
PROC: 0WJP0ZZ Inspection of Gastrointestinal Tract, Open Approach (ICD-10-PCS; 2016-04-22)
PROC: 0JDN0ZZ Extraction of Right Lower Leg Subcutaneous Tissue and Fascia, Open Approach (ICD-10-PCS; 2016-04-24)
PROC: 0USG0ZZ Reposition Vagina, Open Approach (ICD-10-PCS; 2016-04-24)
PROC: 0BH18EZ Insertion of Endotracheal Airway into Trachea, Via Natural or Artificial Opening Endoscopic (ICD-10-PCS; 2016-04-26)
PROC: 5A1945Z Respiratory Ventilation, 24-96 Consecutive Hours (ICD-10-PCS; 2016-04-26)
PROC: 0TBB0ZZ Excision of Bladder, Open Approach (ICD-10-PCS; 2016-04-26)
PROC: 0TQB0ZZ Repair Bladder, Open Approach (ICD-10-PCS; 2016-04-26)
PROC: 3E1M38Z Irrigation of Peritoneal Cavity using Irrigating Substance, Percutaneous Approach (ICD-10-PCS; 2016-04-26)
PROC: 30233N1 Transfusion of Nonautologous Red Blood Cells into Peripheral Vein, Percutaneous Approach (ICD-10-PCS; 2016-04-28)
DX: A41.9 Sepsis, unspecified organism (principal); R65.21 Severe sepsis with septic shock; J96.01 Acute respiratory failure with hypoxia; N17.0 Acute kidney failure with tubular necrosis; I21.4 Non-ST elevation (NSTEMI) myocardial infarction; J18.9 Pneumonia, unspecified organism; I42.9 Cardiomyopathy, unspecified; I50.9 Heart failure, unspecified; E46 Unspecified protein-calorie malnutrition; L03.115 Cellulitis of right lower limb; N13.30 Unspecified hydronephrosis; N39.0 Urinary tract infection, site not specified; K91.3 Postprocedural intestinal obstruction; E87.1 Hypo-osmolality and hyponatremia; E66.01 Morbid (severe) obesity due to excess calories; E86.0 Dehydration; E13.42 Other specified diabetes mellitus with diabetic polyneuropathy; I10 Essential (primary) hypertension; Z51.5 Encounter for palliative care; Z90.49 Acquired absence of other specified parts of digestive tract; F06.8 Other specified mental disorders due to known physiological condition; Z79.84 Long term (current) use of oral hypoglycemic drugs; Z85.3 Personal history of malignant neoplasm of breast; Z90.12 Acquired absence of left breast and nipple; I27.2 Other secondary pulmonary hypertension; G47.33 Obstructive sleep apnea (adult) (pediatric); E78.5 Hyperlipidemia, unspecified; Y83.6 Removal of other organ (partial) (total) as the cause of abnormal reaction of the patient, or of later complication, without mention of misadventure at the time of the procedure; G89.29 Other chronic pain; Z99.81 Dependence on supplemental oxygen; Z66 Do not resuscitate; E87.5 Hyperkalemia; N81.4 Uterovaginal prolapse, unspecified; N13.9 Obstructive and reflux uropathy, unspecified; N81.3 Complete uterovaginal prolapse; D64.9 Anemia, unspecified; Y83.8 Other surgical procedures as the cause of abnormal reaction of the patient, or of later complication, without mention of misadventure at the time of the procedure; I44.7 Left bundle-branch block, unspecified; Y95 Nosocomial condition; Z68.24 Body mass index [BMI] 24.0-24.9, adult
CPT/HCPCS: C1751; C9113; J0171; J0690; J1580; J1650; J1940; J1956; J2060; J2250; J2270; J2543; J3010; J3370; J3480; J7030; J7040; J7050; P9016; P9045; Q9958

== ENCOUNTER 2016-06-17 10:06 | Day surgery (SDC) | payer MEDICARE, OTHER ==
[~2016-06-17 10:06] MED LIST: AUGMENTIN 875-1 EAC2 PO; CHEWABLE-VITE1 EAC1 PO; COLACE100 M1 PO; HYDROCHLOROTH12.5 M2 PO; IPRAT-ALBUT 0.5-3 ML; IPRAT-ALBUT 0.5-3 ML INH; LASIX20 M1 PO; LEVAQUIN750 M1 PO; LISINOPRIL-HCT1 EAC3 PO; LOPRESSOR50 M1 PO; MIRALAX17 G2 PO; MUCINEX1200 MG PO; NYSTOP60 GM TD; POTASSIUM CHLO20 ME4 PO; PRINIVIL10 M1 PO; SENNA8.6 M2 PO; TYLENOL325 M2 PO; ZESTORETIC 20-1 EAC3 PO
[2016-06-17 11:13] LABS: BASO % 0.4 % (0-2); EOS % 3.8 % (0-7); EOSINOPHIL ABSOLUTE COUNT 0.4 tho/cmm (0.0-0.7); HCT-HEMATOCRIT 35.7 % (34.0-49.0); IMMATURE GRANULOCYTES ABSOLUTE 0.04 tho/cmm (0-0.03); IMMATURE GRANULOCYTES PERCENT 0.4 % (0-0.3); LYMPH % 23.2 % (20-45); LYMPH ABSOLUTE COUNT 2.4 tho/cmm (0.8-4.5); MCH (MEAN CORPUSCULAR HGB) 27.2 pg (28.0-32.0); MCHC MEAN CORPUSCULAR HGB CONC 30.8 % (32.0-36.0); MCV (MEAN CELL VOLUME) 88.1 fl (82.0-96.0); MEAN PLATELET VOLUME 9.4 cmc (9.4-12.4); MONO % 9.5 % (0-12); NEUTROPHIL ABSOLUTE COUNT 6.4 tho/cmm (1.6-8.0); NEUTROPHIL-AUTOMATED 6.4 tho/cmm (1.6-8.0); NEUTROPHILS % 62.7 % (40-80); PLATELET COUNT 265 tho/cmm (150-450); RED BLOOD COUNT 4.05 mil/cmm (4.00-5.20); RED CELL DISTRIBUTION WIDTH 16.1 % (12.4-16.4); WHITE BLOOD COUNT 10.2 tho/cmm (4.0-10.0)
[2016-06-17 11:30] LABS: ANION GAP 12 mmol/L (0-20); BLOOD UREA NITROGEN 14 mg/dl (6-24); CARBON DIOXIDE-VENOUS 30 mmol/L (22-32); CHLORIDE 106 mmol/l (96-110); CREATININE 0.49 mg/dl (0.50-1.10); GLUCOSE 93 mg/dL (70-110); SODIUM 144 mmol/L (135-145); eGFR VALUE FOR BLACK >90 mL/Min
[2016-07-03] MEDS ORDERED: SYMBICORT 160-1 PUFF INH (14:38)
[2016-07-03] MEDS ORDERED: NORCO 5-325 TA1 EACH PO (14:38)
== END 2016-06-18 14:10 ==
LOC: SRG 10:06 → SHSC 10:09 → 5WE 19:30
PROVIDERS: Anesthesiology
PROC: 0HRKX74 Replacement of Right Lower Leg Skin with Autologous Tissue Substitute, Partial Thickness, External Approach (ICD-10-PCS; principal; 2016-06-17)
DX: S81.801D Unspecified open wound, right lower leg, subsequent encounter (principal); J45.909 Unspecified asthma, uncomplicated; I27.2 Other secondary pulmonary hypertension; Z79.899 Other long term (current) drug therapy; Z98.890 Other specified postprocedural states
CPT/HCPCS: J0171; J0690; J1580; J2250; J3370